=== PATIENT | male | born 1975 | race African-American/Black ===

== ENCOUNTER 2023-01-02 05:12 | Day surgery (SDC) | payer OTHER ==
[2022-12-08 11:42] VITALS: BMI 30.2
[2023-01-02 16:03] VITALS: BP 137/83; PULSE 70; RESP 18; TEMP 98
== END 2023-01-02 16:03 | disposition home or self-care (01) ==
LOC: JASU-ENDO 05:12
PROVIDERS: ATTEND Student in an Organized Health Care Education/Training Program
PROC: 0DBN8ZX Excision of Sigmoid Colon, Via Natural or Artificial Opening Endoscopic, Diagnostic (ICD-10-PCS; 2023-01-02)
PROC: 0DBK8ZX Excision of Ascending Colon, Via Natural or Artificial Opening Endoscopic, Diagnostic (ICD-10-PCS; principal; 2023-01-02 13:00)
DX: D12.2 Benign neoplasm of ascending colon (principal); D12.5 Benign neoplasm of sigmoid colon; K64.8 Other hemorrhoids; I10 Essential (primary) hypertension
CPT/HCPCS: 88305-TC